=== PATIENT | female | born 1975 | race American Indian/Alaskan Native ===

== ENCOUNTER 2018-05-21 11:22 | Emergency (ER) | payer MEDICARE ==
--- NOTE | 2018-05-21 12:13 | Emergency Department Report ---
ED General Adult HPI - General Chief complaint: Hyperglycemia Stated complaint: BLURRED VISION/HYPERGLYCEMIA Time Seen by Provider: 05/21/18 11:49 Source: patient, EMS Mode of arrival: Stretcher Limitations: No Limitations - History of Present Illness Initial comments: 42-year-old female with a prior history of diabetes and hypertension presents with the complaint of blurred vision for the past week. Patient states that her vision has been consistently blurred since early part of this week and she called her physician, Dr. Alonzo, regarding this and was told to come to the ER. Patient states that she has not had a glucometer to check her blood sugar but states that she has been having fatigue as well as polydipsia for the past 3 days as well. Patient states that she still continues to take her Levemir insulin. Patient denies any abdominal pain. Patient denies any vomiting. Patient denies any fever. Patient also states that she had onset of chest pain in her anterior chest that began this morning. Patient denies any radiation of the pain. Patient denies any paresthesias in her extremities. Patient also complains of a mild headache which is consistent with her prior migraines. Patient states that she's has been taking Excedrin for this. Patient denies any focal weakness or slurred speech. - Related Data Home Medications Medication Instructions Recorded Confirmed Last Taken Aspirin [Aspir-Low] 81 mg PO DAILY 05/21/18 05/21/18 05/21/18 Aspirin/Acetaminophen/Caffeine 1 each PO PRN 05/21/18 05/21/18 05/21/18 [Excedrin Migraine Caplet] Atorvastatin Calcium 80 mg PO DAILY 05/21/18 05/21/18 05/21/18 Cetirizine HCl [ZyrTEC] 10 mg PO DAILY 05/21/18 05/21/18 05/21/18 Clonidine HCl [Catapres] 0.3 mg PO DAILY 05/21/18 05/21/18 05/21/18 Clopidogrel [Plavix] 75 mg PO QDAY 05/21/18 05/21/18 05/21/18 Insulin Detemir [Levemir VIAL] 25 unit SQ QAM 05/21/18 05/21/18 05/21/18 Insulin Detemir [Levemir VIAL] 25 unit SQ QHS 05/21/18 05/21/18 05/21/18 Lisinopril [Zestril] 20 mg PO QDAY 05/21/18 05/21/18 05/21/18 Omeprazole 40 mg PO DAILY 05/21/18 05/21/18 05/21/18 hydroCHLOROthiazide [HCTZ] 25 mg PO QDAY 05/21/18 05/21/18 05/21/18 Previous Rx's Medication Instructions Recorded Last Taken Type HYDROcodone/ACETAMINOPHEN [[place] 1 each PO Q6HR #20 tablet 05/21/18 Unknown Rx 5-325 Tablet] Allergies Allergy/AdvReac Type Severity Reaction Status Date / Time meperidine [From Demerol] Allergy Itching Verified 05/21/18 11:42 ED Review of Systems ROS: Stated complaint: BLURRED VISION/HYPERGLYCEMIA Other details as noted in HPI Constitutional: weakness. denies: chills, fever Eyes: vision change. denies: eye pain, eye discharge ENT: denies: ear pain, throat pain Respiratory: denies: cough, shortness of breath, wheezing Cardiovascular: chest pain. denies: palpitations Endocrine: increased thirst Gastrointestinal: denies: abdominal pain, nausea, diarrhea Genitourinary: denies: urgency, dysuria, discharge Musculoskeletal: denies: back pain, joint swelling, arthralgia Skin: denies: rash, lesions Neurological: headache. denies: weakness, paresthesias Psychiatric: denies: anxiety, depression Hematological/Lymphatic: denies: easy bleeding, easy bruising ED Past Medical Hx - Past Medical History Previous Medical History?: Yes Hx Hypertension: Yes Hx CVA: Yes ("TIA" x4) Hx Diabetes: Yes Hx Headaches / Migraines: Yes Hx Asthma: Yes - Surgical History Past Surgical History?: Yes Additional Surgical History: x3 - Social History Smoking Status: Current Every Day Smoker Substance Use Type: None - Medications Home Medications: Home Medications Medication Instructions Recorded Confirmed Last Taken Type Aspirin [Aspir-Low] 81 mg PO DAILY 05/21/18 05/21/18 05/21/18 History Aspirin/Acetaminophen/Caffeine 1 each PO PRN 05/21/18 05/21/18 05/21/18 History [Excedrin Migraine Caplet] Atorvastatin Calcium 80 mg PO DAILY 05/21/18 05/21/18 05/21/18 History Cetirizine HCl [ZyrTEC] 10 mg PO DAILY 05/21/18 05/21/18 05/21/18 History Clonidine HCl [Catapres] 0.3 mg PO DAILY 05/21/18 05/21/18 05/21/18 History Clopidogrel [Plavix] 75 mg PO QDAY 05/21/18 05/21/18 05/21/18 History HYDROcodone/ACETAMINOPHEN [[place] 1 each PO Q6HR #20 tablet 05/21/18 Unknown Rx 5-325 Tablet] Insulin Detemir [Levemir VIAL] 25 unit SQ QAM 05/21/18 05/21/18 05/21/18 History Insulin Detemir [Levemir VIAL] 25 unit SQ QHS 05/21/18 05/21/18 05/21/18 History Lisinopril [Zestril] 20 mg PO QDAY 05/21/18 05/21/18 05/21/18 History Omeprazole 40 mg PO DAILY 05/21/18 05/21/18 05/21/18 History hydroCHLOROthiazide [HCTZ] 25 mg PO QDAY 05/21/18 05/21/18 05/21/18 History ED Physical Exam - General Limitations: No Limitations General appearance: alert, in no apparent distress - Head Head exam: Present: atraumatic, normocephalic - Eye Eye exam: Present: normal appearance - ENT ENT exam: Present: mucous membranes dry - Neck Neck exam: Present: normal inspection - Respiratory Respiratory exam: Present: normal lung sounds bilaterally. Absent: respiratory distress - Cardiovascular Cardiovascular Exam: Present: regular rate, normal rhythm. Absent: systolic murmur, diastolic murmur, rubs, gallop - GI/Abdominal GI/Abdominal exam: Present: soft, normal bowel sounds - Extremities Exam Extremities exam: Present: normal inspection - Back Exam Back exam: Present: normal inspection - Neurological Exam Neurological exam: Present: alert, oriented X3, CN II-XII intact, other ( Patient moving upper and lower extremities without difficulty) - Psychiatric Psychiatric exam: Present: normal affect, normal mood - Skin Skin exam: Present: warm, dry, intact, normal color. Absent: rash ED Course Vital Signs 05/21/18 05/21/18 05/21/18 11:30 11:42 11:46 Temperature 97.9 F Pulse Rate 65 65 Respiratory 18 14 Rate Blood Pressure 191/91 183/83 Blood Pressure [Left] O2 Sat by Pulse 95 99 96 Oximetry 05/21/18 05/21/18 05/21/18 13:55 13:56 14:00 Temperature Pulse Rate 81 70 Respiratory 14 22 16 Rate Blood Pressure 143/86 Blood Pressure 180/80 [Left] O2 Sat by Pulse 96 99 98 Oximetry 05/21/18 05/21/18 05/21/18 15:30 16:00 16:16 Temperature Pulse Rate Respiratory 21 9 L 22 Rate Blood Pressure 200/101 167/87 182/88 Blood Pressure [Left] O2 Sat by Pulse 99 98 97 Oximetry 05/21/18 05/21/18 05/21/18 16:18 16:30 16:46 Temperature Pulse Rate 64 Respiratory 22 17 Rate Blood Pressure 182/88 182/88 182/88 Blood Pressure [Left] O2 Sat by Pulse 99 97 Oximetry 05/21/18 05/21/18 17:00 17:18 Temperature Pulse Rate Respiratory 12 Rate Blood Pressure 190/85 185/89 Blood Pressure [Left] O2 Sat by Pulse 91 Oximetry ED Medical Decision Making - Lab Data Result diagrams: 05/21/18 12:13 05/21/18 12:18 - EKG Data -: EKG Interpreted by Pa EKG shows normal: sinus rhythm Rate: normal - EKG Data Interpretation: LVH, other (right bundle branch block) - Radiology Data Radiology results: image reviewed - Medical Decision Making Patient has had 2 sets of troponin which are normal. With the interventions of normal saline as well as IV insulin her blood sugar has down trended to below 300 and upon discharge accuchek was 285. Patient is currently sitting upright and talking on her phone and appears in no acute distress. Patient given ophthalmology follow-up. The headache has resolved as well. Low suspicion for acute cardiac disease. - Differential Diagnosis DKA; Hyperglycemia Hyperosmolar Non ketotic State; Anemia; Electrolyte Abn Critical care attestation.: If time is entered above; I have spent that time in minutes in the direct care of this critically ill patient, excluding procedure time. ED Disposition Clinical Impression: Hyperglycemia due to type 2 diabetes mellitus, Chest pain, Blurred vision, bilateral, Headache Disposition: DC-01 TO HOME OR SELFCARE Is pt being admited?: No Condition: Stable Instructions: Chest Pain (ED), Diabetes Mellitus Type 2 in Adults (ED), Blurred Vision (ED) Prescriptions: HYDROcodone/ACETAMINOPHEN [[place] 5-325 Tablet] 1 each PO Q6HR #20 tablet Referrals: VICENTE BLANKENSHIP MD [Staff Physician] - 3-5 Days PRIMARY CARE, [Primary Care Provider] - 3-5 Days Time of Disposition: 19:45 Print Language: L[place]
[2018-05-21] MEDS ORDERED: NACL 0.9% 1000 ML 1,000 ML IV ONE ×2 (12:16→15:15)
[2018-05-21] MEDS ORDERED: HumuLIN R IV ONE (12:16)
[2018-05-21] MEDS ORDERED: ASPIRIN PO ONE (12:26)
[2018-05-21 12:27] LABS: Basophils # (Auto) 0.1 K/mm3 (0.0-0.1); Eosinophils # (Auto) 0.1 K/mm3 (0.0-0.4); Eosinophils % (Auto) 1.5 % (0.0-4.3); Hematocrit 40.7 % (30.3-42.9); Hemoglobin 13.8 gm/dl (10.1-14.3); Lymphocytes # (Auto) 2.9 K/mm3 (1.2-5.4); Lymphocytes % (Auto) 41.7 % (13.4-35.0); Mean Corpuscular HGB Conc 34 % (30-34); Mean Corpuscular Hemoglobin 31 pg (28-32); Mean Corpuscular Volume 92 fl (79-97); Monocytes # (Auto) 0.5 K/mm3 (0.0-0.8); Monocytes % (Auto) 7.3 % (0.0-7.3); Platelet Count 247 K/mm3 (140-440); Red Blood Count 4.45 M/mm3 (3.65-5.03); Red Cell Distribution Width 13.1 % (13.2-15.2)
[2018-05-21] MEDS ORDERED: NORCO 5/325 PO ONE (12:27)
[2018-05-21 12:38] LABS: INR 0.84 (0.87-1.13)
[2018-05-21 12:43] LABS: BUN/Creatinine Ratio 13; Blood Urea Nitrogen 13 mg/dL (7-17); Calcium 8.9 mg/dL (8.4-10.2); Hemolysis Index 5
[2018-05-21 13:02] LABS: Alanine Aminotransferase 21 units/L (7-56); Albumin 3.3 g/dL (3.9-5)
[2018-05-21 13:03] LABS: Bilirubin,Direct < 0.2 mg/dL (0-0.2)
[2018-05-21 14:07] LABS: HCG Qualitative,Urine Negative (Negative)
[2018-05-21 14:13] LABS: Bilirubin,Urine NEG (Negative); Blood,Urine NEG (Negative); Color,Urine Straw (Yellow); Mucus,Urine FEW /HPF; Protein,Urine <15 mg/dL mg/dL (Negative); Urobilinogen,Urine < 2.0 mg/dL (<2.0)
[2018-05-21] MEDS ORDERED: NACL 0.9% 1000 ML 1,000 ML ONE (15:17)
[2018-05-21] MEDS ORDERED: PERCOCET 5/325 PO STA (16:01)
[2018-05-21] MEDS ORDERED: CATAPRES PO ONE (16:03)
[2018-05-21] MEDS ORDERED: HumuLIN R IV STA (16:12)
[2018-05-21 17:20] VITALS: BP 185/89
== END 2018-05-21 18:40 | disposition home or self-care (01) ==
LOC: ED 11:22
DX: E11.65 Type 2 diabetes mellitus with hyperglycemia (principal); R51 Headache; H53.8 Other visual disturbances; R07.89 Other chest pain; I10 Essential (primary) hypertension; J45.909 Unspecified asthma, uncomplicated; G43.909 Migraine, unspecified, not intractable, without status migrainosus; Z86.73 Personal history of transient ischemic attack (TIA), and cerebral infarction without residual deficits; Z88.5 Allergy status to narcotic agent
CPT/HCPCS: 36415; 80048; 80074; 81001; 81025; 82550; 82805; 82962; 84484; 85025; 85610; 85730; 93005; 93010; 96361; 96374; 96375; 99285; J7030; J1815

== ENCOUNTER 2018-11-14 20:49 | Inpatient (IN) | payer MEDICARE ==
[2018-11-14] MEDS ORDERED: ASPIRIN PO ONE (21:19)
[2018-11-14] MEDS ORDERED: SUBLIMAZE IV ONE (21:48)
[2018-11-14] MEDS ORDERED: ZOFRAN IV ONE (21:48)
[2018-11-14] MEDS ORDERED: NITRO-BID 2% TP ONE (21:48)
--- NOTE | 2018-11-14 21:54 | Emergency Department Report ---
HPI - General Chief Complaint: Chest Pain Time Seen by Provider: 11/14/18 21:23 - HPI HPI: Room 22 The patient is a 43-year-old female presented with a chief complaint of chest pain and dizziness. The patient states her symptoms began yesterday with sub sternal chest pain that was sharp in nature and intermittent. Patient states it also feels like gas. Patient admits to occasional pleurisy. The patient states she has had shortness of breath, diaphoresis and nausea without vomiting with her chest pain. Patient also admits to cough productive of yellow sputum for the past 2-3 months which she attributes to allergies. Patient denies any recent flights or long car trips. Patient denies history of fever. The patient currently gives her chest pain score 3/10. The patient states her last stress test occurred over 5 years ago and she has never had a cardiac catheterization Location: Chest Duration: Intermittent since yesterday Quality: Sharp/gas Severity: 3/10 Modifying factors: [see above] Context: [see above] Mode of transportation: [not driving] ED Past Medical Hx - Past Medical History Hx Hypertension: Yes Hx CVA: Yes ("TIA" x4) Hx Diabetes: Yes Hx Headaches / Migraines: Yes Hx Asthma: Yes - Surgical History Additional Surgical History: x3 - Family History Family history: no significant - Social History Smoking Status: Current Every Day Smoker (1/4 pack per day) Substance Use Type: None (denies illicit drug use) - Medications Home Medications: Home Medications Medication Instructions Recorded Confirmed Last Taken Type Aspirin [Aspir-Low] 81 mg PO DAILY 05/21/18 05/21/18 05/21/18 History Aspirin/Acetaminophen/Caffeine 1 each PO PRN 05/21/18 05/21/18 05/21/18 History [Excedrin Migraine Caplet] Atorvastatin Calcium 80 mg PO DAILY 05/21/18 05/21/18 05/21/18 History Cetirizine HCl [ZyrTEC] 10 mg PO DAILY 05/21/18 05/21/18 05/21/18 History Clonidine HCl [Catapres] 0.3 mg PO DAILY 05/21/18 05/21/18 05/21/18 History Clopidogrel [Plavix] 75 mg PO QDAY 05/21/18 05/21/18 05/21/18 History HYDROcodone/ACETAMINOPHEN [[place] 1 each PO Q6HR #20 tablet 05/21/18 Unknown Rx 5-325 Tablet] Insulin Detemir [Levemir VIAL] 25 unit SQ QAM 05/21/18 05/21/18 05/21/18 History Insulin Detemir [Levemir VIAL] 25 unit SQ QHS 05/21/18 05/21/18 05/21/18 History Lisinopril [Zestril] 20 mg PO QDAY 05/21/18 05/21/18 05/21/18 History Omeprazole 40 mg PO DAILY 05/21/18 05/21/18 05/21/18 History hydroCHLOROthiazide [HCTZ] 25 mg PO QDAY 05/21/18 05/21/18 05/21/18 History ED Review of Systems ROS: Stated complaint: CHEST PAIN Other details as noted in HPI Constitutional: diaphoresis Eyes: denies: eye pain ENT: denies: throat pain Respiratory: shortness of breath Cardiovascular: chest pain Endocrine: no symptoms reported Gastrointestinal: nausea. denies: vomiting Genitourinary: denies: dysuria Musculoskeletal: myalgia Neurological: headache Physical Exam - Physical Exam Physical Exam: GENERAL: The patient is well-developed well-nourished female lying on stretcher not appearing to be in acute distress. [] HEENT: Normocephalic. Atraumatic. Extraocular motions are intact. Patient has moist mucous membranes. NECK: Supple. Trachea midline CHEST/LUNGS: Clear to auscultation. There is no respiratory distress noted. HEART/CARDIOVASCULAR: Regular. There is no tachycardia. There is no gallop rub or murmur. ABDOMEN: Abdomen is soft, nontender. Patient has normal bowel sounds. There is no abdominal distention. SKIN: There is no rash. There is no edema. There is no diaphoresis. NEURO: The patient is awake, alert, and oriented. The patient is cooperative. The patient has normal speech MUSCULOSKELETAL: There is no evidence of acute injury. ED Medical Decision Making - Lab Data Result diagrams: 11/14/18 22:36 11/14/18 22:36 Laboratory Tests 11/14/18 11/14/18 11/14/18 22:36 22:36 22:36 WBC 13.5 H RBC 4.39 Hgb 13.9 Hct 40.7 MCV 93 MCH 32 MCHC 34 RDW 13.4 Plt Count 106 L Lymph # [employer]p [employer] D-Dimer 147.32 Sodium 146 H Potassium 3.3 L Chloride 101.8 Carbon Dioxide 32 H Anion Gap 16 BUN 20 H Creatinine 1.0 Estimated GFR > 60 BUN/Creatinine Ratio 20 Glucose 46 L Calcium 9.4 Troponin T < 0.010 - EKG Data -: EKG Interpreted by Me EKG shows normal: sinus rhythm Rate: normal - EKG Data When compared to previous EKG there are: no significant change Interpretation: unchanged when compared t (05/21/2018), nonspecific ST-T wave servando - Radiology Data Radiology results: image reviewed (chest x-ray) interpreted by me: Chest x-ray-no focal infiltrates, no pneumothorax - Differential Diagnosis ACS, pericarditis, GERD, PE Critical care attestation.: If time is entered above; I have spent that time in minutes in the direct care of this critically ill patient, excluding procedure time. ED Disposition Clinical Impression: Chest pain Disposition: OP ADMIT IP TO THIS HOSP Is pt being admited?: Yes Does the pt Need Aspirin: Yes Condition: Fair Instructions: Chest Pain (ED) Referrals: STEPHY LARIOSNEWPORT MD RIAN [Primary Care Provider] - 3-5 Days Time of Disposition: 00:02 (hospitalist paged (Dr Umaña))
--- NOTE | 2018-11-14 21:57 | XRay Report ---
PROCEDURE: XR CHEST 1V AP TECHNIQUE: Frontal portable view of the chest HISTORY: Chest Pain COMPARISONS: None FINDINGS: There is no evidence of focal infiltrate, pneumothorax or pleural fluid collection. The cardiac silhouette is enlarged. This may be exaggerated by portable technique. The thoracic aorta and bony structures are unremarkable. Visualization of detail of the thoracic spin e is limited. IMPRESSION: 1. No evidence of an acute pulmonary process. 2. Enlarged cardiac silhouette. This may be exaggerated by portable technique. This document is electronically signed by Lili Gomez MD., November 14 2018 09:55:26 PM ET
[2018-11-14] MEDS ORDERED: TYLENOL PO ONE (22:23)
[2018-11-14 23:07] LABS: BUN/Creatinine Ratio 20; Blood Urea Nitrogen 20 mg/dL (7-17); Calcium 9.4 mg/dL (8.4-10.2); Hemolysis Index 6
[2018-11-14] MEDS ORDERED: K-DUR PO ONE (23:27)
[2018-11-14] MEDS ORDERED: FIORICET PO ONE (23:44)
[2018-11-14 23:45] LABS: Hematocrit 40.7 % (30.3-42.9); Hemoglobin 13.9 gm/dl (10.1-14.3); Mean Corpuscular HGB Conc 34 % (30-34); Mean Corpuscular Volume 93 fl (79-97); Red Blood Count 4.39 M/mm3 (3.65-5.03); Red Cell Distribution Width 13.4 % (13.2-15.2)
[2018-11-15] MEDS ORDERED: APRESOLINE IV ONE (01:12)
[2018-11-15] MEDS ORDERED: NITROSTAT SL PRN (01:18)
[2018-11-15] MEDS ORDERED: ZOFRAN IV PRN (01:19)
[2018-11-15] MEDS ORDERED: APRESOLINE ONE (01:24)
[2018-11-15] MEDS ORDERED: TYLENOL PO PRN (01:25)
[2018-11-15 02:54] LABS: Basophils % (Manual) 0 % (0.0-1.8); Platelet Clumps 2+; RBC Morphology Normal; Total Cells Counted 100
[2018-11-15 03:00] LABS: Platelet Count 106 K/mm3 (140-440)
[2018-11-15] MEDS: MORPHINE IV PRN ×3 (04:07→21:28)
[2018-11-15] MEDS: NITRO-BID 2% TP SCH ×4 (05:30→19:35)
[2018-11-15 07:38] LABS: Creatine Kinase MB 3.1 ng/mL (0.0-4.0)
--- NOTE | 2018-11-15 07:38 | History and Physical Report ---
CHIEF COMPLAINT: Chest pain. HISTORY OF PRESENT ILLNESS: The patient is a 43-year-old female presenting with chest pain and there is associated dizziness, shortness of breath, diaphoresis, nausea, but no vomiting. There is also history of associated cough productive of yellow sputum. There is no history of fever and the patient presented for evaluation. PAST MEDICAL HISTORY: Pertinent for hypertension, TIAs, diabetes mellitus, migraine headache, asthma. PAST SURGICAL HISTORY: Pertinent for C-sections x 3. FAMILY HISTORY: Family history is noncontributory. SOCIAL HISTORY: The patient smokes cigarettes, does not use illicit drugs and does not drink alcohol. MEDICATIONS: The patient's home medications include aspirin 81 mg daily, Excedrin Migraine capsules 1 by mouth, frequency unknown, Lipitor 80 mg by mouth daily, Zyrtec 10 mg by mouth daily, clonidine 0.3 mg by mouth daily, clopidogrel 75 mg by mouth daily, hydrochlorothiazide 25 mg by mouth daily, [place] 5/325 mg 1 by mouth every 6 hours, Levemir insulin 25 mg by mouth every morning and 25 units subcutaneous every morning and 25 units of subcutaneous every evening, lisinopril 20 mg by mouth daily, omeprazole 40 mg by mouth daily. ALLERGIES: THE PATIENT IS ALLERGIC TO MEPERIDINE. REVIEW OF SYSTEMS: CONSTITUTIONAL: There is no fever, no chills. Diaphoresis is present. HEENT: There is no headache or sore throat. CARDIOVASCULAR SYSTEM: Chest pain is present. No orthopnea. RESPIRATORY SYSEM: Shortness of breath is present. Cough is present. GASTROINTESTINAL SYSTEM: Nausea is present, but no vomiting, no abdominal pain, diarrhea or constipation. NEUROLOGIC SYSTEM: There is no numbness, no dizziness, no altered mental status. MUSCULOSKELETAL SYSTEM: There is no joint pain or swelling. DERMATOLOGICAL SYSTEM: There is no skin rash or itching. GENITOURINARY SYSTEM: There is no dysuria, hematuria or flank pain. Rest of system review is normal. PHYSICAL EXAMINATION: GENERAL: At the time of exam, the patient was found to be alert, oriented x 3 and not in acute distress. VITAL SIGNS: Shows temperature of 98.4 degrees Fahrenheit, pulse of 84, respirations 14, blood pressure 179/89, O2 sat of 100% on room air. HEENT: Showed pupils to be equal, round, reactive to light and accommodating. Extraocular muscles are intact. NECK: Supple with no JVD or carotid bruit. CARDIOVASCULAR SYSTEM: Showed normal first and second heart sounds with no gallops or murmurs. RESPIRATORY SYSTEM: Show good air entry on both sides of the lung with no abnormal breath sounds. GASTROINTESTINAL SYSTEM: Show abdomen to be full, soft, nontender with no organomegaly or rigidity. NEUROLOGICAL: Shows no focal deficit. MUSCULOSKELETAL SYSTEM: Show no joint swelling or tenderness. DERMATOLOGICAL SYSTEM: Showing no skin rash. GENITOURINARY SYSTEM: Showing no costovertebral angle tenderness. PERTINENT LABORATORY DATA AND IMAGING STUDIES: The patient had a chest x-ray done that shows no evidence of acute pulmonary process. There is finding of enlarged cardiac silhouette that may exaggerated by the portable technique according to the radiologist. The patient's lab results show elevated white count of 13,500 with normal hemoglobin and normal hematocrit and low platelet count of 106,000. CBC differential was unremarkable. The patient's coagulation study was unremarkable. The patient's chemistry shows elevated sodium level of 146 with low potassium level of 3.3, high CO2 of 32 with high BUN of 20 and low blood glucose level of 46. DIAGNOSES: 1. Chest pain. 2. Hypokalemia. 3. Hypoglycemia. PLAN OF CARE: 1. The patient will be admitted to telemetry. 2. The patient will have serial cardiac enzymes checked q. 6 hours x 2 more levels. 3. The patient will be n.p.o. for Lexiscan stress test this morning. 4. The patient will be on hypoglycemic protocol because of low sugar at initial time of presentation. 5. The patient will be on Tylenol 650 mg by mouth every 4 hours as needed for fever and headache and will be on IV morphine 2 mg every 4 hours for pain. 6. The patient will be on Nitrostat 0.4 mg every 5 minutes as needed for pain and will be on nitro paste half inch to anterior chest wall t.i.d. 7. The patient will be on Zofran 4 mg IV every 8 hours for nausea and vomiting and DVT prophylaxis will be through heparin 5000 units subcutaneous q. 12 hours. 8. The patient will be on oxygen by nasal cannula at 2 liter per minute. 9. The patient will be on Accu-Chek q. 4 hours until Lexiscan stress test is completed this morning. JOB# [id number] OCN/NTS
[2018-11-15] MEDS ORDERED: ASPIRIN PO SCH (10:00)
[2018-11-15] MEDS ORDERED: LEXISCAN IV ONE ×2 (10:17→10:20)
[2018-11-15] MEDS: HEPARIN SUB-Q SCH ×2 (12:41→21:31)
[2018-11-15 13:33] LABS: Basophils # (Auto) 0.1 K/mm3 (0.0-0.1); Eosinophils # (Auto) 0.1 K/mm3 (0.0-0.4); Hematocrit 43.2 % (30.3-42.9); Hemoglobin 14.7 gm/dl (10.1-14.3); Lymphocytes # (Auto) 3.8 K/mm3 (1.2-5.4); Lymphocytes % (Auto) 39.8 % (13.4-35.0); Mean Corpuscular HGB Conc 34 % (30-34); Mean Corpuscular Volume 93 fl (79-97); Monocytes # (Auto) 0.6 K/mm3 (0.0-0.8); Monocytes % (Auto) 6.4 % (0.0-7.3); Red Blood Count 4.66 M/mm3 (3.65-5.03); Red Cell Distribution Width 13.6 % (13.2-15.2)
[2018-11-15 13:51] LABS: Creatine Kinase MB 3.2 ng/mL (0.0-4.0)
[2018-11-15 13:54] LABS: Platelet Count 150 K/mm3 (140-440)
--- NOTE | 2018-11-15 14:08 | Event Note ---
Date: 11/15/18 Patient was seen and evaluated this morning, patient was admitted for chest pain and leukocytosis. The plan is to discharge her after her stress test, but this morning the patient developed hypoglycemia, chills, nausea and she is now feeling well. I ordered UA, blood culture and start empirically on Rocephin. If results are negative and symptoms resolved patient can be discharged tomorrow. Patient admitted earlier this morning, continue management as outlined by H&P.
[2018-11-15] MEDS: ROCEPHIN/NS 1 GM/50 ML 1 GM/50 ML BAG IV SCH (19:36)
[2018-11-16] MEDS: MORPHINE IV PRN ×2 (00:12→22:28)
[2018-11-16] MEDS: APRESOLINE IV PRN ×2 (01:30→22:21)
[2018-11-16 02:51] LABS: Bilirubin,Urine NEG (Negative); Blood,Urine NEG (Negative); Color,Urine Amber (Yellow); Mucus,Urine FEW /HPF
[2018-11-16] MEDS: NITRO-BID 2% TP SCH ×4 (06:53→17:00)
[2018-11-16 08:01] LABS: Basophils # (Auto) 0.1 K/mm3 (0.0-0.1); Basophils % (Auto) 1.4 % (0.0-1.8); Eosinophils # (Auto) 0.2 K/mm3 (0.0-0.4); Eosinophils % (Auto) 2.2 % (0.0-4.3); Hematocrit 41.7 % (30.3-42.9); Hemoglobin 14.2 gm/dl (10.1-14.3); Lymphocytes # (Auto) 3.6 K/mm3 (1.2-5.4); Lymphocytes % (Auto) 40.9 % (13.4-35.0); Mean Corpuscular HGB Conc 34 % (30-34); Mean Corpuscular Volume 93 fl (79-97); Monocytes # (Auto) 0.6 K/mm3 (0.0-0.8); Monocytes % (Auto) 6.5 % (0.0-7.3); Red Blood Count 4.47 M/mm3 (3.65-5.03); Red Cell Distribution Width 13.8 % (13.2-15.2)
[2018-11-16 08:10] LABS: BUN/Creatinine Ratio 25; Blood Urea Nitrogen 20 mg/dL (7-17); Hemolysis Index 24
[2018-11-16 08:40] LABS: Platelet Count 177 K/mm3 (140-440)
--- NOTE | 2018-11-16 09:29 | Progress Note ---
Assessment and Plan Assessment and plan: Chest pain, r/o ACS -Serial troponin levels negative -Stress test done but report pending SIRS -Exact source of infection unknown -On empiric IV antibiotic -UA negative -Blood cultures pending HTN, uncontrolled -home antihypertensives resumed, will adjust as needed Disposition: for possible d/c if stress test is negative and blood cultures are negative as well History Interval history: Patient has no new complaints. She denies current chest pain. Hospitalist Physical - Constitutional Vitals: Temp Pulse Resp BP Pulse Ox 98.2 F 74 22 183/93 97 11/15/18 13:56 11/16/18 01:30 11/15/18 13:56 11/16/18 01:30 11/15/18 13:56 General appearance: Present: no acute distress - EENT Eyes: Present: PERRL, EOM intact ENT: hearing intact, clear oral mucosa - Neck Neck: Present: supple - Respiratory Respiratory effort: normal Respiratory: bilateral: CTA - Cardiovascular Rhythm: regular Heart Sounds: Present: S1 & S2 - Extremities Extremities: No edema - Abdominal General gastrointestinal: soft, non-tender, non-distended, normal bowel sounds - Neurologic Neurologic: CNII-XII intact Results - Labs CBC & Chem 7: 11/16/18 07:36 11/16/18 07:36 Labs: Laboratory Last Values WBC 8.7 K/mm3 (4.5-11.0) 11/16/18 07:36 RBC 4.47 M/mm3 (3.65-5.03) 11/16/18 07:36 Hgb 14.2 gm/dl (10.1-14.3) 11/16/18 07:36 Hct 41.7 % (30.3-42.9) 11/16/18 07:36 MCV 93 fl (79-97) 11/16/18 07:36 MCH 32 pg (28-32) 11/16/18 07:36 MCHC 34 % (30-34) 11/16/18 07:36 RDW 13.8 % (13.2-15.2) 11/16/18 07:36 Plt Count 177 K/mm3 (140-440) 11/16/18 07:36 Lymph % (Auto) 40.9 % (13.4-35.0) H 11/16/18 07:36 [place] % (Auto) 6.5 % (0.0-7.3) 11/16/18 07:36 Eos % (Auto) 2.2 % (0.0-4.3) 11/16/18 07:36 Baso % (Auto) 1.4 % (0.0-1.8) 11/16/18 07:36 Lymph # 3.6 K/mm3 (1.2-5.4) 11/16/18 07:36 [place] # 0.6 K/mm3 (0.0-0.8) 11/16/18 07:36 Eos # 0.2 K/mm3 (0.0-0.4) 11/16/18 07:36 Baso # 0.1 K/mm3 (0.0-0.1) 11/16/18 07:36 Add Manual Diff Complete 11/14/18 22:36 Total Counted 100 11/14/18 22:36 Seg Neutrophils % 49.0 % (40.0-70.0) 11/16/18 07:36 Seg Neuts % (Manual) 56.0 % (40.0-70.0) 11/14/18 22:36 Band Neutrophils % 0 % 11/14/18 22:36 Lymphocytes % (Manual) 34.0 % (13.4-35.0) 11/14/18 22:36 Reactive Lymphs % (Man) 0 % 11/14/18 22:36 Monocytes % (Manual) 7.0 % (0.0-7.3) 11/14/18 22:36 Eosinophils % (Manual) 3.0 % (0.0-4.3) 11/14/18 22:36 Basophils % (Manual) 0 % (0.0-1.8) 11/14/18 22:36 Metamyelocytes % 0 % 11/14/18 22:36 Myelocytes % 0 % 11/14/18 22:36 Promyelocytes % 0 % 11/14/18 22:36 Blast Cells % 0 % 11/14/18 22:36 Nucleated RBC % Not Reportable 11/14/18 22:36 Seg Neutrophils # 4.3 K/mm3 (1.8-7.7) 11/16/18 07:36 Seg Neutrophils # Man 7.6 K/mm3 (1.8-7.7) 11/14/18 22:36 Band Neutrophils # 0.0 K/mm3 11/14/18 22:36 Lymphocytes # (Manual) 4.6 K/mm3 (1.2-5.4) 11/14/18 22:36 Abs React Lymphs (Man) 0.0 K/mm3 11/14/18 22:36 Monocytes # (Manual) 0.9 K/mm3 (0.0-0.8) H 11/14/18 22:36 Eosinophils # (Manual) 0.4 K/mm3 (0.0-0.4) 11/14/18 22:36 Basophils # (Manual) 0.0 K/mm3 (0.0-0.1) 11/14/18 22:36 Metamyelocytes # 0.0 K/mm3 11/14/18 22:36 Myelocytes # 0.0 K/mm3 11/14/18 22:36 Promyelocytes # 0.0 K/mm3 11/14/18 22:36 Blast Cells # 0.0 K/mm3 11/14/18 22:36 WBC Morphology Not Reportable 11/14/18 22:36 Hypersegmented Neuts Not Reportable 11/14/18 22:36 Hyposegmented Neuts Not Reportable 11/14/18 22:36 Hypogranular Neuts Not Reportable 11/14/18 22:36 Smudge Cells Not Reportable 11/14/18 22:36 Toxic Granulation Not Reportable 11/14/18 22:36 Toxic Vacuolation Not Reportable 11/14/18 22:36 Dohle Bodies Not Reportable 11/14/18 22:36 Pelger-Huet Anomaly Not Reportable 11/14/18 22:36 Jero Rods Not Reportable 11/14/18 22:36 Platelet Estimate Not Reportable 11/14/18 22:36 Clumped Platelets 2+ 11/14/18 22:36 Plt Clumps, EDTA Not Reportable 11/14/18 22:36 Large Platelets Not Reportable 11/14/18 22:36 Giant Platelets Not Reportable 11/14/18 22:36 Platelet Satelliting Not Reportable 11/14/18 22:36 Plt Morphology Comment Not Reportable 11/14/18 22:36 RBC Morphology Normal 11/14/18 22:36 Dimorphic RBCs Not Reportable 11/14/18 22:36 Polychromasia Not Reportable 11/14/18 22:36 Hypochromasia Not Reportable 11/14/18 22:36 Poikilocytosis Not Reportable 11/14/18 22:36 Anisocytosis Not Reportable 11/14/18 22:36 Microcytosis Not Reportable 11/14/18 22:36 Macrocytosis Not Reportable 11/14/18 22:36 Spherocytes Not Reportable 11/14/18 22:36 Pappenheimer Bodies Not Reportable 11/14/18 22:36 Sickle Cells Not Reportable 11/14/18 22:36 Target Cells Not Reportable 11/14/18 22:36 Tear Drop Cells Not Reportable 11/14/18 22:36 Ovalocytes Not Reportable 11/14/18 22:36 Helmet Cells Not Reportable 11/14/18 22:36 Haji-Meg[place] Bodies Not Reportable 11/14/18 22:36 [place] Rings Not Reportable 11/14/18 22:36 Gricel Cells Not Reportable 11/14/18 22:36 Bite Cells Not Reportable 11/14/18 22:36 Crenated Cell Not Reportable 11/14/18 22:36 Elliptocytes Not Reportable 11/14/18 22:36 Acanthocytes (Spur) Not Reportable 11/14/18 22:36 Rouleaux Not Reportable 11/14/18 22:36 Hemoglobin C Crystals Not Reportable 11/14/18 22:36 Schistocytes Not Reportable 11/14/18 22:36 Malaria parasites Not Reportable 11/14/18 22:36 Gino Bodies Not Reportable 11/14/18 22:36 Hem Pathologist Commnt No 11/14/18 22:36 D-Dimer 147.32 ng/mlDDU (0-234) 11/14/18 22:36 Sodium 138 mmol/L (137-145) D 11/16/18 07:36 Potassium 3.6 mmol/L (3.6-5.0) 11/16/18 07:36 Chloride 99.7 mmol/L (98-107) 11/16/18 07:36 Carbon Dioxide 25 mmol/L (22-30) D 11/16/18 07:36 Anion Gap 17 mmol/L 11/16/18 07:36 BUN 20 mg/dL (7-17) H 11/16/18 07:36 Creatinine 0.8 mg/dL (0.7-1.2) 11/16/18 07:36 Estimated GFR > 60 ml/min 11/16/18 07:36 BUN/Creatinine Ratio 25 % 11/16/18 07:36 Glucose 179 mg/dL (65-100) H 11/16/18 07:36 POC Glucose 156 (70-105) H 11/16/18 08:00 Calcium 9.0 mg/dL (8.4-10.2) 11/16/18 07:36 Total Creatine Kinase 83 units/L (30-135) 11/15/18 12:50 CK-MB (CK-2) 3.2 ng/mL (0.0-4.0) 11/15/18 12:50 CK-MB (CK-2) Rel Index 3.8 (0-4) 11/15/18 12:50 Troponin T < 0.010 ng/mL (0.00-0.029) 11/15/18 12:50 Urine Color Shilpi (Yellow) 11/16/18 Unknown Urine Turbidity Clear (Clear) 11/16/18 Unknown Urine pH 5.0 (5.0-7.0) 11/16/18 Unknown Ur Specific [place] 1.030 (1.003-1.030) 11/16/18 Unknown Urine Protein 30 mg/dl mg/dL (Negative) 11/16/18 Unknown Urine Glucose (UA) Neg mg/dL (Negative) 11/16/18 Unknown Urine Ketones Neg mg/dL (Negative) 11/16/18 Unknown Urine Blood Neg (Negative) 11/16/18 Unknown Urine Nitrite Pos (Negative) 11/16/18 Unknown Urine Bilirubin Neg (Negative) 11/16/18 Unknown Urine Urobilinogen 4.0 mg/dL (<2.0) 11/16/18 Unknown Ur Leukocyte Esterase Tr (Negative) 11/16/18 Unknown Urine WBC (Auto) 5.0 /HPF (0.0-6.0) 11/16/18 Unknown Urine RBC (Auto) 2.0 /HPF (0.0-6.0) 11/16/18 Unknown U Epithel Cells (Auto) 4.0 /HPF (0-13.0) 11/16/18 Unknown Urine Mucus Few /HPF 11/16/18 Unknown
[2018-11-16] MEDS ORDERED: CAFFEINE PO SCH (09:30)
[2018-11-16] MEDS ORDERED: ACETAMINOPHEN PO SCH (09:30)
[2018-11-16] MEDS ORDERED: ASPIRIN PO SCH (09:30)
[2018-11-16] MEDS ORDERED: NON-FORMULARY (Omeprazole [Omeprazole] 40 MG) PO SCH (10:00)
[2018-11-16] MEDS ORDERED: NON-FORMULARY (Clonidine Hcl [Catapres] 0.3 MG) PO SCH (10:00)
[2018-11-16] MEDS ORDERED: NON-FORMULARY (Atorvastatin Calcium [Atorvastatin Calcium] 80 MG) PO SCH (10:00)
[2018-11-16] MEDS ORDERED: NON-FORMULARY (Cetirizine Hcl [Zyrtec] 10 MG) PO SCH (10:00)
[2018-11-16] MEDS: CLARITIN PO SCH (10:29)
[2018-11-16] MEDS: ROCEPHIN/NS 1 GM/50 ML 1 GM/50 ML BAG IV SCH (10:29)
[2018-11-16] MEDS: PROTONIX PO SCH (10:29)
[2018-11-16] MEDS: PLAVIX PO SCH (10:29)
[2018-11-16] MEDS: CATAPRES PO SCH (10:29)
[2018-11-16] MEDS: ZESTRIL PO SCH (10:29)
[2018-11-16] MEDS: HALFPRIN EC PO SCH (10:31)
[2018-11-16] MEDS: HEPARIN SUB-Q SCH ×2 (10:39→22:20)
[2018-11-17] MEDS: NITRO-BID 2% TP SCH ×4 (06:05→18:41)
[2018-11-17] MEDS: HEPARIN SUB-Q SCH ×2 (09:25→21:48)
[2018-11-17] MEDS: CLARITIN PO SCH (09:25)
[2018-11-17] MEDS: PROTONIX PO SCH (09:25)
[2018-11-17] MEDS: HALFPRIN EC PO SCH (09:25)
[2018-11-17] MEDS: PLAVIX PO SCH (09:25)
[2018-11-17] MEDS: CATAPRES PO SCH ×3 (09:25→21:00)
[2018-11-17] MEDS: ZESTRIL PO SCH (09:25)
[2018-11-17] MEDS: NORVASC PO SCH (15:32)
[2018-11-17] MEDS: ROCEPHIN/NS 1 GM/50 ML 1 GM/50 ML BAG IV SCH (15:33)
--- NOTE | 2018-11-17 16:01 | Progress Note ---
Assessment and Plan Assessment and plan: Chest pain, r/o ACS -Serial troponin levels negative -Stress test done but report still pending SIRS -Exact source of infection unknown -On empiric IV antibiotic -UA negative -Blood cultures neg so far HTN, uncontrolled -home antihypertensives adjusted, will monitor Disposition: d/c in am if stress test is neg and BP improves History Interval history: Patient has no new complaints. She denies current chest pain. Hospitalist Physical - Constitutional Vitals: Temp Pulse Resp BP Pulse Ox 98.0 F 101 H 18 180/110 98 11/17/18 09:03 11/17/18 00:00 11/17/18 09:03 11/17/18 09:03 11/17/18 00:00 General appearance: Present: no acute distress - EENT Eyes: Present: PERRL, EOM intact ENT: hearing intact, clear oral mucosa - Neck Neck: Present: supple - Respiratory Respiratory effort: normal Respiratory: bilateral: CTA - Cardiovascular Rhythm: regular Heart Sounds: Present: S1 & S2 - Extremities Extremities: No edema - Abdominal General gastrointestinal: soft, non-tender, non-distended, normal bowel sounds - Neurologic Neurologic: CNII-XII intact Results - Labs CBC & Chem 7: 11/16/18 07:36 11/16/18 07:36 Labs: Laboratory Last Values WBC 8.7 K/mm3 (4.5-11.0) 11/16/18 07:36 RBC 4.47 M/mm3 (3.65-5.03) 11/16/18 07:36 Hgb 14.2 gm/dl (10.1-14.3) 11/16/18 07:36 Hct 41.7 % (30.3-42.9) 11/16/18 07:36 MCV 93 fl (79-97) 11/16/18 07:36 MCH 32 pg (28-32) 11/16/18 07:36 MCHC 34 % (30-34) 11/16/18 07:36 RDW 13.8 % (13.2-15.2) 11/16/18 07:36 Plt Count 177 K/mm3 (140-440) 11/16/18 07:36 Lymph % (Auto) 40.9 % (13.4-35.0) H 11/16/18 07:36 [place] % (Auto) 6.5 % (0.0-7.3) 11/16/18 07:36 Eos % (Auto) 2.2 % (0.0-4.3) 11/16/18 07:36 Baso % (Auto) 1.4 % (0.0-1.8) 11/16/18 07:36 Lymph # 3.6 K/mm3 (1.2-5.4) 11/16/18 07:36 [place] # 0.6 K/mm3 (0.0-0.8) 11/16/18 07:36 Eos # 0.2 K/mm3 (0.0-0.4) 11/16/18 07:36 Baso # 0.1 K/mm3 (0.0-0.1) 11/16/18 07:36 Add Manual Diff Complete 11/14/18 22:36 Total Counted 100 11/14/18 22:36 Seg Neutrophils % 49.0 % (40.0-70.0) 11/16/18 07:36 Seg Neuts % (Manual) 56.0 % (40.0-70.0) 11/14/18 22:36 Band Neutrophils % 0 % 11/14/18 22:36 Lymphocytes % (Manual) 34.0 % (13.4-35.0) 11/14/18 22:36 Reactive Lymphs % (Man) 0 % 11/14/18 22:36 Monocytes % (Manual) 7.0 % (0.0-7.3) 11/14/18 22:36 Eosinophils % (Manual) 3.0 % (0.0-4.3) 11/14/18 22:36 Basophils % (Manual) 0 % (0.0-1.8) 11/14/18 22:36 Metamyelocytes % 0 % 11/14/18 22:36 Myelocytes % 0 % 11/14/18 22:36 Promyelocytes % 0 % 11/14/18 22:36 Blast Cells % 0 % 11/14/18 22:36 Nucleated RBC % Not Reportable 11/14/18 22:36 Seg Neutrophils # 4.3 K/mm3 (1.8-7.7) 11/16/18 07:36 Seg Neutrophils # Man 7.6 K/mm3 (1.8-7.7) 11/14/18 22:36 Band Neutrophils # 0.0 K/mm3 11/14/18 22:36 Lymphocytes # (Manual) 4.6 K/mm3 (1.2-5.4) 11/14/18 22:36 Abs React Lymphs (Man) 0.0 K/mm3 11/14/18 22:36 Monocytes # (Manual) 0.9 K/mm3 (0.0-0.8) H 11/14/18 22:36 Eosinophils # (Manual) 0.4 K/mm3 (0.0-0.4) 11/14/18 22:36 Basophils # (Manual) 0.0 K/mm3 (0.0-0.1) 11/14/18 22:36 Metamyelocytes # 0.0 K/mm3 11/14/18 22:36 Myelocytes # 0.0 K/mm3 11/14/18 22:36 Promyelocytes # 0.0 K/mm3 11/14/18 22:36 Blast Cells # 0.0 K/mm3 11/14/18 22:36 WBC Morphology Not Reportable 11/14/18 22:36 Hypersegmented Neuts Not Reportable 11/14/18 22:36 Hyposegmented Neuts Not Reportable 11/14/18 22:36 Hypogranular Neuts Not Reportable 11/14/18 22:36 Smudge Cells Not Reportable 11/14/18 22:36 Toxic Granulation Not Reportable 11/14/18 22:36 Toxic Vacuolation Not Reportable 11/14/18 22:36 Dohle Bodies Not Reportable 11/14/18 22:36 Pelger-Huet Anomaly Not Reportable 11/14/18 22:36 Jero Rods Not Reportable 11/14/18 22:36 Platelet Estimate Not Reportable 11/14/18 22:36 Clumped Platelets 2+ 11/14/18 22:36 Plt Clumps, EDTA Not Reportable 11/14/18 22:36 Large Platelets Not Reportable 11/14/18 22:36 Giant Platelets Not Reportable 11/14/18 22:36 Platelet Satelliting Not Reportable 11/14/18 22:36 Plt Morphology Comment Not Reportable 11/14/18 22:36 RBC Morphology Normal 11/14/18 22:36 Dimorphic RBCs Not Reportable 11/14/18 22:36 Polychromasia Not Reportable 11/14/18 22:36 Hypochromasia Not Reportable 11/14/18 22:36 Poikilocytosis Not Reportable 11/14/18 22:36 Anisocytosis Not Reportable 11/14/18 22:36 Microcytosis Not Reportable 11/14/18 22:36 Macrocytosis Not Reportable 11/14/18 22:36 Spherocytes Not Reportable 11/14/18 22:36 Pappenheimer Bodies Not Reportable 11/14/18 22:36 Sickle Cells Not Reportable 11/14/18 22:36 Target Cells Not Reportable 11/14/18 22:36 Tear Drop Cells Not Reportable 11/14/18 22:36 Ovalocytes Not Reportable 11/14/18 22:36 Helmet Cells Not Reportable 11/14/18 22:36 Haji-[place]ard[place] Bodies Not Reportable 11/14/18 22:36 [place] Rings Not Reportable 11/14/18 22:36 Gricel Cells Not Reportable 11/14/18 22:36 Bite Cells Not Reportable 11/14/18 22:36 Crenated Cell Not Reportable 11/14/18 22:36 Elliptocytes Not Reportable 11/14/18 22:36 Acanthocytes (Spur) Not Reportable 11/14/18 22:36 Rouleaux Not Reportable 11/14/18 22:36 Hemoglobin C Crystals Not Reportable 11/14/18 22:36 Schistocytes Not Reportable 11/14/18 22:36 Malaria parasites Not Reportable 11/14/18 22:36 Gino Bodies Not Reportable 11/14/18 22:36 Hem Pathologist Commnt No 11/14/18 22:36 D-Dimer 147.32 ng/mlDDU (0-234) 11/14/18 22:36 Sodium 138 mmol/L (137-145) D 11/16/18 07:36 Potassium 3.6 mmol/L (3.6-5.0) 11/16/18 07:36 Chloride 99.7 mmol/L (98-107) 11/16/18 07:36 Carbon Dioxide 25 mmol/L (22-30) D 11/16/18 07:36 Anion Gap 17 mmol/L 11/16/18 07:36 BUN 20 mg/dL (7-17) H 11/16/18 07:36 Creatinine 0.8 mg/dL (0.7-1.2) 11/16/18 07:36 Estimated GFR > 60 ml/min 11/16/18 07:36 BUN/Creatinine Ratio 25 % 11/16/18 07:36 Glucose 179 mg/dL (65-100) H 11/16/18 07:36 POC Glucose 206 (70-105) H 11/17/18 12:11 Calcium 9.0 mg/dL (8.4-10.2) 11/16/18 07:36 Total Creatine Kinase 83 units/L (30-135) 11/15/18 12:50 CK-MB (CK-2) 3.2 ng/mL (0.0-4.0) 11/15/18 12:50 CK-MB (CK-2) Rel Index 3.8 (0-4) 11/15/18 12:50 Troponin T < 0.010 ng/mL (0.00-0.029) 11/15/18 12:50 Urine Color [place]ilpi (Yellow) 11/16/18 Unknown Urine Turbidity Clear (Clear) 11/16/18 Unknown Urine pH 5.0 (5.0-7.0) 11/16/18 Unknown Ur Specific [place] 1.030 (1.003-1.030) 11/16/18 Unknown Urine Protein 30 mg/dl mg/dL (Negative) 11/16/18 Unknown Urine Glucose (UA) Neg mg/dL (Negative) 11/16/18 Unknown Urine Ketones Neg mg/dL (Negative) 11/16/18 Unknown Urine Blood Neg (Negative) 11/16/18 Unknown Urine Nitrite Pos (Negative) 11/16/18 Unknown Urine Bilirubin Neg (Negative) 11/16/18 Unknown Urine Urobilinogen 4.0 mg/dL (<2.0) 11/16/18 Unknown Ur Leukocyte Esterase Tr (Negative) 11/16/18 Unknown Urine WBC (Auto) 5.0 /HPF (0.0-6.0) 11/16/18 Unknown Urine RBC (Auto) 2.0 /HPF (0.0-6.0) 11/16/18 Unknown U Epithel Cells (Auto) 4.0 /HPF (0-13.0) 11/16/18 Unknown Urine Mucus Few /HPF 11/16/18 Unknown Active Medications - Current Medications Current Medications: Generic Name Dose Route Start Last Admin Trade Name Freq PRN Reason Stop Dose Admin Acetaminophen 650 mg 11/15/18 01:25 11/16/18 01:37 Tylenol PO 650 mg Q4H PRN Administration Headache Amlodipine Besylate 10 mg 11/17/18 14:00 11/17/18 15:32 Norvasc PO 10 mg QDAY BRENDAN Administration Aspirin 81 mg 11/16/18 11:00 11/17/18 09:25 Halfprin Ec PO 81 mg DAILY [facility] Administration Atorvastatin Calcium 80 mg 11/16/18 22:00 11/16/18 22:20 Lipitor PO 80 mg QHS BRENDAN Administration Clonidine HCl 0.3 mg 11/17/18 14:00 11/17/18 15:32 Catapres PO 0.3 mg TID BRENDAN Administration Clopidogrel Bisulfate 75 mg 11/16/18 11:00 11/17/18 09:25 Plavix PO 75 mg QDAY [facility] Administration Heparin Sodium (Porcine) 5,000 unit 11/15/18 10:00 11/17/18 09:25 Heparin SUB-Q 5,000 unit Q12HR [facility] Administration Hydralazine HCl 5 mg 11/16/18 01:17 11/16/18 22:21 Apresoline IV 5 mg Q6H PRN Administration Hypertension Ceftriaxone Sodium 1 gm in 50 mls @ 100 mls/hr 11/15/18 15:00 11/17/18 15:33 Rocephin/Ns 1 Gm/50 Ml IV 100 mls/hr Q24HR [facility] Administration Protocol Insulin Human Lispro 0 unit 11/17/18 16:30 Humalog SUB-Q ACHS [facility] Protocol Lisinopril 20 mg 11/16/18 11:00 11/17/18 09:25 Zestril PO 20 mg QDAY [facility] Administration Loratadine 10 mg 11/16/18 11:00 11/17/18 09:25 Claritin PO 10 mg DAILY [facility] Administration Morphine Sulfate 2 mg 11/15/18 01:19 11/16/18 22:28 Morphine IV 2 mg Q4H PRN Administration Pain, Moderate (4-6) Nitroglycerin 0.4 mg 11/15/18 01:18 Nitrostat SL .Q5MIN PRN Chest Pain Nitroglycerin 0.5 inch 11/15/18 06:00 11/17/18 15:33 Nitro-Bid 2% TP Not Given QIDNTG [facility] Protocol Ondansetron HCl 4 mg 11/15/18 01:19 Zofran IV Q8H PRN Nausea And Vomiting Pantoprazole Sodium 40 mg 11/16/18 11:00 11/17/18 09:25 Protonix PO 40 mg DAILY [facility] Administration
[2018-11-17] MEDS: HumaLOG SUB-Q SCH ×2 (18:43→21:47)
--- NOTE | 2018-11-17 21:43 | Treadmill Report ---
THALLIUM STRESS TEST LEFT VENTRICLE: Left ventricular chamber size is within normal limits. Perfusion study demonstrates homogeneous uptake of the tracer in all segments, no significant defects identified. Gated analysis demonstrates normal left ventricular systolic function, ejection fraction of 62%. CONCLUSION: Normal myocardial perfusion study. JOB# [id number] [facility]/NTS
[2018-11-17] MEDS ORDERED: LANTUS SUB-Q SCH (22:00)
[2018-11-18 05:01] VITALS: BP 135/72
[2018-11-18] MEDS: NITRO-BID 2% TP SCH ×3 (05:05→14:58)
[2018-11-18 06:46] LABS: BUN/Creatinine Ratio 25; Blood Urea Nitrogen 20 mg/dL (7-17); Calcium 9.1 mg/dL (8.4-10.2); Hemolysis Index 2
[2018-11-18] MEDS: HumaLOG SUB-Q SCH ×2 (07:40→13:02)
[2018-11-18] MEDS: PLAVIX PO SCH (10:46)
[2018-11-18] MEDS: NORVASC PO SCH (10:46)
[2018-11-18] MEDS: ZESTRIL PO SCH (10:46)
[2018-11-18] MEDS: HEPARIN SUB-Q SCH (10:46)
[2018-11-18] MEDS: CLARITIN PO SCH (10:46)
[2018-11-18] MEDS: HALFPRIN EC PO SCH (10:46)
[2018-11-18] MEDS: PROTONIX PO SCH (10:46)
[2018-11-18] MEDS: CATAPRES PO SCH ×2 (10:49→14:57)
--- NOTE | 2018-11-18 10:52 | Discharge Summary ---
Providers - Providers Date of Admission: 11/15/18 00:19 Date of discharge: 11/18/18 Attending physician: LEON FALCON [facility] Reason for admission: cp Condition: Fair Hospital course: This is a 43-year-old female presented through the emergency department with chief complaint of chest pain. Patient reported substernal chest pain described as sharp in nature occurring intermittently. Patient stated that symptoms began one day prior to admission. Patient also admitted to productive cough of yellow sputum. The patient underwent evaluation with exercise stress test which revealed normal myocardial perfusion scan. Cardiac isoenzymes were found to be negative. Patient also had a complaint of dizziness on admission which was attributed to hypoglycemia. Dizziness resolved with resolution of hypoglycemia. Patient also had diagnosis of SIRS and started on empiric IV antibiotics. Blood cultures remained negative. Etiology likely secondary to acute bronchitis. Patient was discharged with antibiotics and follow-up with primary care physician as an outpatient. Dedicated discharge time 32 minutes. Disposition: - TO HOME OR SELFCARE Time spent for discharge: 32 - Discharge Diagnoses (1) Acute bronchitis Status: Acute (2) Accelerated hypertension Status: Acute (3) SIRS (systemic inflammatory response syndrome) Status: Acute (4) Chest pain Status: Acute Core Measure Documentation - Palliative Care Palliative Care/ Comfort Measures: Not Applicable - Core Measures Any of the following diagnoses?: none Exam - Constitutional Vitals: Temp Pulse Resp BP Pulse Ox 98.5 F 73 12 135/72 99 11/18/18 04:29 11/18/18 04:29 11/18/18 04:29 11/18/18 04:29 11/18/18 04:29 General appearance: Present: no acute distress, well-nourished - EENT Eyes: Present: PERRL ENT: hearing intact, clear oral mucosa - Neck Neck: Present: supple, normal ROM - Respiratory Respiratory effort: normal Respiratory: bilateral: CTA - Cardiovascular Heart Sounds: Present: S1 & S2. Absent: rub, click - Extremities Extremities: pulses symmetrical, No edema Peripheral Pulses: within normal limits - Abdominal General gastrointestinal: Present: soft, non-tender, non-distended, normal bowel sounds Female genitourinary: Present: normal - Integumentary Integumentary: Present: clear, warm, dry - Musculoskeletal Musculoskeletal: gait normal, strength equal bilaterally - Psychiatric Psychiatric: appropriate mood/affect, intact judgment & insight - Neurologic Neurologic: CNII-XII intact, moves all extremities Plan Activity: no restrictions Weight Bearing Status: Full Weight Bearing Diet: regular Follow up with: GOLDEN WILSON MD [Primary Care Provider] - 3-5 Days Prescriptions: Aspirin [Aspir-Low] 81 mg PO DAILY #30 tablet. Atorvastatin Calcium 80 mg PO DAILY #30 tablet Clonidine HCl [Catapres] 0.3 mg PO DAILY #30 tablet Aspirin/Acetaminophen/Caffeine [Excedrin Migraine Caplet] 1 each PO PRN #10 tablet hydroCHLOROthiazide [HCTZ] 25 mg PO QDAY #30 tablet amLODIPine [Norvasc] 10 mg PO QDAY #30 tablet Omeprazole 40 mg PO DAILY #30 capsule. Clopidogrel [Plavix] 75 mg PO QDAY #30 tablet Lisinopril [Zestril TAB] 20 mg PO QDAY #30 tablet Cetirizine HCl [ZyrTEC] 10 mg PO DAILY #30 capsule
== END 2018-11-18 16:28 | disposition home or self-care (01) | DRG 872 ==
LOC: ED 20:49 → 4A 11-15 00:19
PROVIDERS: ADMIT Internal Medicine; ATTEND Hospitalist
DX: A41.9 Sepsis, unspecified organism (principal); J20.9 Acute bronchitis, unspecified; R65.10 Systemic inflammatory response syndrome (SIRS) of non-infectious origin without acute organ dysfunction; E11.649 Type 2 diabetes mellitus with hypoglycemia without coma; I10 Essential (primary) hypertension; E87.6 Hypokalemia; G43.909 Migraine, unspecified, not intractable, without status migrainosus; F17.210 Nicotine dependence, cigarettes, uncomplicated; D72.829 Elevated white blood cell count, unspecified; Z86.73 Personal history of transient ischemic attack (TIA), and cerebral infarction without residual deficits; Z79.82 Long term (current) use of aspirin; Z79.4 Long term (current) use of insulin; Z79.899 Other long term (current) drug therapy
CPT/HCPCS: 36415; 71045; 78452; 80048; 81001; 82550; 82553; 82962; 83735; 84484; 85007; 85025; 85379; 87040; 93005; 93010; 93017; 99406; G0378; A9270-GY; A9502; J0360; J0696; J1644; J1815; J2270; J2405; J2785; J3010